=== PATIENT | female | born 1945 | race American Indian/Alaskan Native ===

== ENCOUNTER 2017-12-02 08:11 | Day surgery (SDC) | payer MEDICARE ==
[2017-12-02] MEDS ORDERED: NACL 0.9% 1000 ML 1,000 ML ONE (08:45)
--- NOTE | 2017-12-02 08:52 | Anesthesia Consultation ---
Anesthesia Consult and Med Hx Date of service: 12/02/17 - Airway Anesthetic Teeth Evaluation: Edentulous ROM Head & Neck: Adequate Mental/Hyoid Distance: Adequate Mallampati Class: Class II Intubation Access Assessment: Probably Good - Pulmonary Exam CTA: Yes - Cardiac Exam Cardiac Exam: RRR - Pre-Operative Health Status ASA Pre-Surgery Classification: ASA3 Proposed Anesthetic Plan: MAC - Cardiovascular System Hx Hypertension: Yes - Central Nervous System Hx Neuromuscular Disorder: Yes (cerebral palsy) - Gastrointestinal Hx Gastroesophageal Reflux Disease: Yes (last nexium 12/01/16)
[2017-12-02] MEDS ORDERED: ZOFRAN IV PRN (08:56)
--- NOTE | 2017-12-02 08:56 | Anesthesia Day of Surgery ---
Anesthesia Day of Surgery - Day of Surgery Patient Examined: Yes Patient H&P Reviewed: Yes Patient is NPO: Yes
[2017-12-02] MEDS ORDERED: NACL 0.9% 1000 ML 1,000 ML IV SCH (09:00)
[2017-12-02] MEDS ORDERED: ANCEF/STERILE WATER 2 GM/20 ML IV NR (09:00)
[2017-12-02] MEDS ORDERED: PEPCID IV NR (09:00)
[2017-12-02] MEDS ORDERED: NACL BACTERIOSTATIC INFILTRATI ONE (09:24)
[2017-12-02] MEDS ORDERED: SUBLIMAZE ONE (11:34)
[2017-12-02] MEDS ORDERED: DIPRIVAN 10 MG/ML IV ONE (11:34)
[2017-12-02] MEDS ORDERED: MARCAINE 0.25% INFILTRATI ONE ×2 (11:35→11:57)
[2017-12-02] MEDS ORDERED: XYLOCAINE MPF 2% ONE (11:36)
--- NOTE | 2017-12-02 12:30 | Operative Report ---
Operative Report Operative Report: Date of surgery: 12/02/17 Preoperative diagnosis: soft tissue mass of back Post operative diagnosis: same as above Procedure performed: Excision of soft tissue mass of back with complex closure of skin Surgeon: Noel Hobbs DO Anesthesia: Mac, local Findings: Lipoma measuring 4 cm x 3 cm x 0.5 cm Estimated blood loss: Less than 5 mL Specimen: Soft tissue mass of back Complications: None Disposition: Stable to PACU HPI and indication: The patient is a 72-year-old female who was referred to the surgical clinic for evaluation of a painful mass of her back. The patient was found to have a soft tissue mass of her right mid back that was causing her great discomfort. She was therefore scheduled for excision of the mass. All risks were discussed the patient and her niece/POA and questions answered. Consent was signed and placed on the chart. Procedure in detail: Patient was identified in the preoperative area, marked, and taken back to the operating room, placed on the operating room table in lateral decubitus position with right side up. Anesthesia was induced and then the right back was prepped and draped in usual sterile fashion and a timeout performed. Local anesthetic was infiltrated into the skin at the intended incision site. A horizontal incision was made measuring approximately 4 cm using a 15 blade. Dissection was carried down through the skin until the soft tissue mass was encountered. This was circumferentially dissected using hemostat. It was a lobulated mass composed of fatty tissue measuring 4 cm x3cm x 0.5 cm. The soft tissue mass was then detached from the underlying subcutaneous tissue using electrocautery. It was passed off the table as specimen. The wound was then irrigated and hemostasis achieved using electrocautery. The deep dermal layer was approximated using 3-0 Vicryl stitch. The skin was closed with 4-0 Monocryl subcuticular stitches and skin glue. A Telfa was applied over the incision once the wound was dry, and a compression dressing using 4 x 4 gauze and tape was applied over that. At the end of the case, all sponge, instrument, and sharp counts were correct 2. The patient was awoken from anesthesia and taken to the PACU in stable condition.
--- NOTE | 2017-12-02 12:35 | Short Stay Summary ---
Short Stay Documentation Date of service: 12/02/17 Narrative H&P: 72-year-old female with painful soft tissue mass of right upper back. She was evaluated in the office and after all risks were discussed, she was scheduled for a excision of the soft tissue mass. She presents today for this procedure and has no complaints. - History Principal diagnosis: soft tissue mass of upper back H&P: obtained from office - Allergies and Medications Current Medications: Allergies morphine Allergy (Verified 12/02/17 08:51) Anaphylaxis NIECE STATES THAT IODINE DOES NOT CAUSE ALLERGIC REACTION labetalol Adverse Reaction (Verified 12/02/17 08:54) Vomiting IVP DYE Allergy (Uncoded 12/02/17 08:51) Anaphylaxis Home Medications Medication Instructions Recorded Confirmed Last Taken Type Amitriptyline [Elavil] 25 mg PO QHS 12/02/17 12/02/17 12/01/17 History Esomeprazole Magnesium [Nexium] 40 mg PO QDAY 12/02/17 12/02/17 11/30/17 History Meloxicam [Mobic] 7.5 mg PO BID 12/02/17 12/02/17 12/01/17 History Tolterodine Tartrate [Detrol] 2 mg PO BID 12/02/17 12/02/17 12/01/17 History cloNIDine [Catapres] 0.2 mg PO BID 12/02/17 12/02/17 12/01/17 23:00 History Active Medications Sodium Chloride (Nacl 0.9% 1000 Ml) 1,000 mls @ 100 mls/hr IV DIRECT KATHERINE Last Admin: 12/02/17 10:20 Dose: 100 mls/hr - Brief post op/procedure progress note Date of procedure: 12/02/17 Pre-op diagnosis: soft tissue mass of upper back Post-op diagnosis: same Procedure: Excision of soft tissue mass of upper back Anesthesia: MAC Findings: 4 x 3 x 0.5 cm lobulated mass composed of fat Surgeon: NICKIE RENAE Estimated blood loss: minimal Pathology: list (soft tissue mass of upper back) Specimen disposition: to lab Condition: stable - Hospital course Hospital course: She was recovered in the PACU and discharged when criteria was met. - Disposition Condition at discharge: Good Disposition: DC- TO HOME OR SELFCARE - Discharge Diagnoses (1) Soft tissue mass Status: Acute Short Stay Discharge Plan Activity: other (do not drive if taking narcotic pain medication) Diet: regular Wound: other (remove outer dressing 2 days. Leave wound open to air. May shower in 2 days. Clean wound with soap and water, pat dry. Do not scrub or submerge incision in water.) Follow up with: MILA BARNEY MD [Primary Care Provider] - 7 Days NICKIE RENAE DO [Staff Physician] - 14 Days Prescriptions: Ibuprofen [Motrin 800 MG tab] 800 mg PO Q8HR PRN #20 tablet PRN Reason: Pain
--- NOTE | 2017-12-02 15:23 | Post Anesthesia Evaluation ---
- Post Anesthesia Evaluation Patient Participated: Yes Airway Patent: Yes Stable Respiratory Function: Yes Nausea/Vomiting: No Temp > 96.8F: Yes Pain Manageable: Yes Adequeate Hydration: Yes Anesthesia Complications: No Block Receding Appropriately: Not Applicable Patient on Ventilator: No
[2017-12-02 20:10] VITALS: BP 135/68
== END 2017-12-02 15:09 | disposition home or self-care (01) ==
LOC: OR 08:11 → EDBD 08:11 → OR 15:09
PROVIDERS: ATTEND Surgery
DX: D17.1 Benign lipomatous neoplasm of skin and subcutaneous tissue of trunk (principal); G80.9 Cerebral palsy, unspecified; I10 Essential (primary) hypertension; M19.90 Unspecified osteoarthritis, unspecified site; K21.9 Gastro-esophageal reflux disease without esophagitis; Z88.5 Allergy status to narcotic agent; Z88.8 Allergy status to other drugs, medicaments and biological substances; Z91.048 Other nonmedicinal substance allergy status; Z79.899 Other long term (current) drug therapy; Z90.49 Acquired absence of other specified parts of digestive tract; Z98.890 Other specified postprocedural states
CPT/HCPCS: 21931; 88304; J0690; J2704; J3010; J7030; 88307

== ENCOUNTER 2018-02-08 15:58 | Outpatient (CLI) | payer MEDICARE ==
--- NOTE | 2018-02-08 18:45 | XRay Report ---
FINAL REPORT PROCEDURE: XR KNEE 3V RT TECHNIQUE: RIGHT knee radiographs, AP, lateral and oblique views. CPT 11065 HISTORY: Right knee pain. COMPARISON: No prior studies are available for comparison. FINDINGS: Fracture (s) and/or Dislocation(s): None . Alignment: Normal . Joint space(s): Incompletely characterized distal femoral intramedullary kal. Mild tricompartmental narrowing and small osteophytes. Tibial eminence spurring. Soft tissues: Tiny density anterior to the anterior tibial apophysis likely small soft tissue calcification. Bone mineralization: Moderate osteopenia. Foreign bodies: None . IMPRESSION: Moderate osteopenia and degenerative change right knee.
--- NOTE | 2018-02-08 18:59 | XRay Report ---
FINAL REPORT PROCEDURE: XR ANKLE 3+V RT TECHNIQUE: RIGHT ankle radiographs, AP, lateral, and oblique views. CPT 68568 HISTORY: Right ankle pain. COMPARISON: No prior studies are available for comparison. FINDINGS: Fracture (s) and/or Dislocation(s): None. Alignment: Talar tilt, likely positional. Joint space(s): Tibiotalar joint narrowing. Soft tissues: Normal. Bone mineralization: Moderate osteopenia. Foreign bodies: None. Calcaneal spurring: Calcaneal spur. IMPRESSION: Moderate osteopenia. Mild degenerative change. Talar tilt likely positional.
== END 2018-02-08 15:59 | disposition home or self-care (01) ==
LOC: XRAY 15:58 → EDBD 15:58 → OR 15:58 → XRAY 15:59
PROVIDERS: ATTEND Orthopaedic Surgery
DX: M19.071 Primary osteoarthritis, right ankle and foot (principal); M17.11 Unilateral primary osteoarthritis, right knee; M85.871 Other specified disorders of bone density and structure, right ankle and foot; M85.861 Other specified disorders of bone density and structure, right lower leg

== ENCOUNTER 2018-05-19 15:06 | Outpatient (CLI) | payer MEDICARE ==
--- NOTE | 2018-05-19 20:37 | XRay Report ---
FINAL REPORT PROCEDURE: XR FEMUR 2+V RT TECHNIQUE: RIGHT femur radiographs, AP and lateral views. HISTORY: PAIN IN RIGHT KNEE COMPARISON: No prior studies are available for comparison. FINDINGS: A right total hip prosthesis is noted with a right femoral intramedullary nail extending into the distal diaphysis. Old healed fracture deformity is noted involving the proximal femur. Hip prosthesis demonstrates normal alignment. An acute fracture is not identified. Soft tissues are unremarkable. No radiopaque foreign bodies. IMPRESSION: No acute abnormality.
== END 2018-05-19 15:07 | disposition home or self-care (01) ==
LOC: XRAY 15:06
PROVIDERS: ATTEND Orthopaedic Surgery
DX: M25.561 Pain in right knee (principal); M21.951 Unspecified acquired deformity of right thigh; Z96.641 Presence of right artificial hip joint

== ENCOUNTER 2018-07-20 14:08 | Outpatient (CLI) | payer MEDICARE ==
--- NOTE | 2018-07-20 16:18 | XRay Report ---
XRAY RIGHT HAND THREE VIEWS: 07/20/18 14:08:00 CLINICAL: Pain. FINDINGS: A comminuted displaced fracture at the base of the middle phalanx of the middle finger. Lateral angulation, impaction and displacement at the fracture. There is evidence of some callus. No other fractures. No dislocations. Mild arthritis of the first MCP joint. The carpal bones are intact. The distal radius and ulnar are normal. Mild soft tissue swelling of the middle finger but no soft tissue air or foreign body. IMPRESSION: A subacute comminuted displaced fracture of the middle phalanx of the middle finger.
== END 2018-07-20 14:09 | disposition home or self-care (01) ==
LOC: XRAY 14:08
PROVIDERS: ATTEND Orthopaedic Surgery
DX: S62.624A Displaced fracture of middle phalanx of right ring finger, initial encounter for closed fracture (principal); I10 Essential (primary) hypertension; M19.90 Unspecified osteoarthritis, unspecified site; K21.9 Gastro-esophageal reflux disease without esophagitis; Z90.49 Acquired absence of other specified parts of digestive tract; Z90.722 Acquired absence of ovaries, bilateral; X58.XXXA Exposure to other specified factors, initial encounter; Y93.89 Activity, other specified; Y92.89 Other specified places as the place of occurrence of the external cause; Y99.8 Other external cause status

== ENCOUNTER 2020-05-01 14:17 | Outpatient (CLI) | payer MEDICARE ==
--- NOTE | 2020-05-01 15:21 | XRay Report ---
XR shoulder 2+V RT INDICATION / CLINICAL INFORMATION: RIGHT SHOULDER PAIN. COMPARISON: None available. FINDINGS: BONES/JOINT(S): No acute fracture or subluxation. Mild DJD in the AC joint. No focal bone lesions. SOFT TISSUES: No significant abnormality. ADDITIONAL FINDINGS: None. Signer Name: Efren Parekh MD Signed: 05/01/2020 3:17 PM Workstation Name: [id number]
== END 2020-05-01 14:18 | disposition home or self-care (01) ==
LOC: XRAY 14:17
PROVIDERS: ATTEND Orthopaedic Surgery
DX: M19.011 Primary osteoarthritis, right shoulder (principal); M25.111 Fistula, right shoulder

== ENCOUNTER 2020-11-19 12:28 | Outpatient (CLI) | payer MEDICARE ==
--- NOTE | 2020-11-19 14:52 | XRay Report ---
CLINICAL DATA: PAIN IN UNSPECIFIED HIP TECHNICAL DATA: AP view FINDINGS: Severe osteopenia is present. Total right hip arthroplasties present. Moderate degenerative changes l eft hip. No evidence of an acute fracture IMPRESSION: No acute radiographic abnormality. Signer Name: Josiah Artis MD Signed: 11/19/2020 2:48 PM Workstation Name: [id number]
--- NOTE | 2020-11-19 14:53 | XRay Report ---
CLINICAL DATA: PAIN IN UNSPECIFIED HIP TECHNICAL DATA: AP and lateral views of the femurs. FINDINGS: Bones are osteopenic. Total right hip arthroplasty is present with a long intramedullary kal componen t. No evidence of a superimposed acute fracture or dislocation IMPRESSION: No acute radiographic abnormality. Signer Name: Josiah Artis MD Signed: 11/19/2020 2:49 PM Workstation Name: [id number]
== END 2020-11-19 12:29 | disposition home or self-care (01) ==
LOC: XRAY 12:28
PROVIDERS: ATTEND Orthopaedic Surgery
DX: M85.88 Other specified disorders of bone density and structure, other site (principal); M25.559 Pain in unspecified hip
CPT/HCPCS: 72170

== ENCOUNTER 2021-10-21 14:40 | Outpatient (CLI) | payer MEDICARE ==
--- NOTE | 2021-10-21 16:22 | XRay Report ---
CHEST 2 VIEWS INDICATION / CLINICAL INFORMATION: CHEST PAIN. COMPARISON: None available. FINDINGS: SUPPORT DEVICES: None. HEART / MEDIASTINUM: No significant abnormality. LUNGS / PLEURA: No significant pulmonary or pleural abnormality. No pneumothorax. ADDITIONAL FINDINGS: Gaseous distention of the colon under the left diaphragm. IMPRESSION: 1. No acute cardiopulmonary abnormality. 2. Gaseous distention of colon is nonspecific. Recommend clinical correlation. Signer Name: Kyle Ashby MD Signed: 10/21/2021 4:18 PM Workstation Name: [email or web address]
--- NOTE | 2021-10-21 16:26 | XRay Report ---
LEFT HUMERUS 2 VIEWS INDICATION: Pain in left shoulder. COMPARISON: None. IMPRESSION: Osteopenia is evident. No evidence for acute fracture, bone lesion or bony destruction. The soft tissues are unremarkable LEFT FEMUR 2 VIEWS INDICATION: LEFT FEMUR PAIN. COMPARISON: None. IMPRESSION: Osteopenia is evident. No evidence for acute fracture, bony lesion or bony destruction. A left knee prosthesis is present. I question if there could be mild lucency surrounding the femoral component of the prosthesis which may represent loosening. Please correlate with the patient's clini dayne presentation. Signer Name: Damon Guerra Jr, MD Signed: 10/21/2021 4:22 PM Workstation Name: [id number]
== END 2021-10-21 14:41 | disposition home or self-care (01) ==
LOC: XRAY 14:40
PROVIDERS: ATTEND Orthopaedic Surgery
DX: R07.9 Chest pain, unspecified (principal); M25.512 Pain in left shoulder; M79.652 Pain in left thigh; M84.459A Pathological fracture, hip, unspecified, initial encounter for fracture
CPT/HCPCS: 71046